=== PATIENT | female | born 1985 | race Caucasian/White ===

== ENCOUNTER 2019-03-09 16:14 | Observation (INO) ==
[2019-03-09] MEDS ORDERED: FLU Vac QV 19-20 (6Month+)/PF 0.5 ML SYRINGE IM ONE (16:33)
[2019-03-09 17:30] LABS: Basophils % 0.4 %; Eosinophils % 0.5 %; Hematocrit 34.6 % (35.3-44.9); Hemoglobin 11.3 g/dL (11.5-15.4); Immature Granulocytes % 0.4 % (0-4); Lymphocytes # 2.1 K/mcL (0.6-4.6); Lymphocytes % 29.1 %; Mean Corpuscular HGB Conc 32.7 g/dL (31.6-35.5); Mean Corpuscular Hemoglobin 27.4 pg (28.0-33.3); Mean Corpuscular Volume 83.8 fL (83.0-100.0); Mean Platelet Volume 11.2 fL (9.4-12.4); Monocytes # 0.5 K/mcL (0.0-1.3); Monocytes % 7.4 %; Neutrophils # 4.6 K/mcL (1.6-8.9); Platelet Count 227 K/mcL (140-400); Red Blood Count 4.13 M/mcL (3.82-4.97); Red Cell Distribution Width 14.5 % (11.5-14.5); Segmented Neutrophils % 62.2 %; White Blood Count 7.3 K/mcL (4.3-11.1)
[2019-03-09 17:36] LABS: Creatinine,Urine 76 mg/dL; Protein/Creatinine Ratio,Urine 0.29 mg/mg (0.00-0.20)
[2019-03-09 17:37] LABS: Amphetamine Screen,Urine Negative ng/mL (Cutoff=1000); Barbiturate Screen,Urine Negative ng/mL (Cutoff=200); Benzodiazepines Screen,Urine Negative ng/mL (Cutoff=200); Cannabinoid Screen,Urine Negative ng/mL (Cutoff = 50); Cocaine Screen,Urine Negative ng/mL (Cutoff= 300); Opiate Screen,Urine Negative ng/mL (Cutoff=300); Phencyclidine Screen,Urine Negative ng/mL (Cutoff=25)
[2019-03-09 17:44] LABS: Alanine Aminotransferase 10 Units/L (7-52); Aspartate Amino Transferase 15 Units/L (13-39); BUN/Creatinine Ratio 24 (6-26); Blood Urea Nitrogen 13 mg/dL (6-20); Lactate Dehydrogenase 161 Units/L (140-271); Uric Acid 5.4 mg/dL (2.3-7.6); eGFR For African Americans > 60 (> 60); eGFR For Non-African Americans > 60 (> 60)
[2019-03-09 18:12] LABS: Varicella Zoster IgG Antibody Positive
[2019-03-09 18:13] LABS: Rubella IgG Antibody POSITIVE (POSITIVE)
[2019-03-09 18:49] LABS: Hepatitis B Surface Antigen Nonreactive (Nonreactive)
[2019-03-09 19:18] LABS: Hepatitis C Virus Antibody Nonreactive (Nonreactive)
[2019-03-09 19:44] LABS: HIV-1&2 Antibody & p24 Ag Nonreactive (Nonreactive)
== END 2019-03-09 21:34 | disposition home or self-care (01) ==
LOC: 1NENULAB
PROVIDERS: ADMIT Registered Nurse; ATTEND Registered Nurse

== ENCOUNTER 2019-03-18 15:29 | Inpatient (IN) ==
[2019-03-18] MEDS ORDERED: Metoclopramide 10 MG/2 ML VIAL IVP PRN (16:17)
[2019-03-18] MEDS ORDERED: miSOPROStoL 25 MCG TABLET PO PRN (16:17)
[2019-03-18] MEDS ORDERED: Famotidine 20 MG/2 ML VIAL IVP PRN (16:17)
[2019-03-18] MEDS ORDERED: *HR* Nalbuphine 10 MG/ML AMPUL IVP PRN (16:17)
[2019-03-18] MEDS ORDERED: Naloxone 0.4 MG/ML INJ IVP PRN ×2 (16:17→20:00)
[2019-03-18] MEDS ORDERED: Lidocaine 1% 20 ML MDV INFILT PRN (16:17)
[2019-03-18] MEDS ORDERED: Ondansetron 4 MG/2 ML VIAL IVP PRN ×2 (16:17→20:00)
[2019-03-18] MEDS ORDERED: Oxytocin 20 units/ LR 1000 mL 20 UNIT/1,000 ML BAG IVC SCH (16:30)
[2019-03-18] MEDS ORDERED: FLU Vac QV 19-20 (6Month+)/PF 0.5 ML SYRINGE IM ONE (17:18)
[2019-03-18 17:22] LABS: Basophils % 0.4 %; Eosinophils # 0.1 K/mcL (0.0-0.6); Eosinophils % 1.1 %; Hematocrit 33.1 % (35.3-44.9); Immature Granulocytes % 0.4 % (0-4); Lymphocytes # 2.2 K/mcL (0.6-4.6); Lymphocytes % 28.9 %; Mean Corpuscular HGB Conc 33.2 g/dL (31.6-35.5); Mean Corpuscular Hemoglobin 27.7 pg (28.0-33.3); Mean Corpuscular Volume 83.4 fL (83.0-100.0); Mean Platelet Volume 10.3 fL (9.4-12.4); Monocytes # 0.5 K/mcL (0.0-1.3); Monocytes % 6.4 %; Neutrophils # 4.7 K/mcL (1.6-8.9); Platelet Count 228 K/mcL (140-400); Red Blood Count 3.97 M/mcL (3.82-4.97); Segmented Neutrophils % 62.8 %; White Blood Count 7.5 K/mcL (4.3-11.1)
[2019-03-18 17:31] LABS: Creatinine,Urine 157 mg/dL; Protein/Creatinine Ratio,Urine 0.18 mg/mg (0.00-0.20)
[2019-03-18 17:37] LABS: Amphetamine Screen,Urine Negative ng/mL (Cutoff=1000); Barbiturate Screen,Urine Negative ng/mL (Cutoff=200); Benzodiazepines Screen,Urine Negative ng/mL (Cutoff=200); Cannabinoid Screen,Urine Negative ng/mL (Cutoff = 50); Cocaine Screen,Urine Negative ng/mL (Cutoff= 300); Opiate Screen,Urine Negative ng/mL (Cutoff=300); Phencyclidine Screen,Urine Negative ng/mL (Cutoff=25)
[2019-03-18 17:41] LABS: Alanine Aminotransferase 11 Units/L (7-52); Aspartate Amino Transferase 15 Units/L (13-39); BUN/Creatinine Ratio 17 (6-26); Blood Urea Nitrogen 11 mg/dL (6-20); Lactate Dehydrogenase 144 Units/L (140-271); Uric Acid 5.8 mg/dL (2.3-7.6); eGFR For African Americans > 60 (> 60); eGFR For Non-African Americans > 60 (> 60)
[2019-03-18] MEDS ORDERED: Penicillin G Potassium 5,000,000 UNIT in 0.9 % Sodium Chloride Mini Bag 100 ML IVPB ONE (17:57)
[2019-03-18] MEDS: Ringers Solution, Lactated 1,000 ML IVC SCH (18:21)
[2019-03-18] MEDS ORDERED: Ropivacaine/PF 0.2% 20 ML VIAL EP ONE (20:00)
[2019-03-18] MEDS ORDERED: EPHEDrine 50 MG/ML VIAL IVP PRN (20:00)
[2019-03-18] MEDS ORDERED: *HR* FentaNYL (PF) 100 MCG/2 ML VIAL EP ONE (20:00)
[2019-03-18] MEDS: Penicillin G Potassium 2,500,000 UNIT in 0.9 % Sodium Chloride 100 ML IVPB SCH (22:50)
[2019-03-19] MEDS: Penicillin G Potassium 2,500,000 UNIT in 0.9 % Sodium Chloride 100 ML IVPB SCH ×4 (03:08→15:30)
[2019-03-19] MEDS: Ringers Solution, Lactated 1,000 ML IVC SCH ×2 (11:55→15:30)
[2019-03-19] MEDS: Epidural Premix (fent/bupiv) 110 ML EP SCH ×2 (13:53→21:25)
[2019-03-19] MEDS ORDERED: Ropivacaine/PF 0.2% 20 ML VIAL ONE (22:06)
[2019-03-19] MEDS ORDERED: *HR* FentaNYL (PF) 100 MCG/2 ML VIAL ONE (22:06)
[2019-03-20] MEDS ORDERED: Acetaminophen 325 MG TABLET PO ONE (05:53)
[2019-03-20] MEDS ORDERED: Acetaminophen 325 MG TABLET PO PRN (08:17)
[2019-03-20] MEDS ORDERED: Oxytocin 20 units/ LR 1000 mL 20 UNIT/1,000 ML BAG IVC SCH (08:17)
[2019-03-20] MEDS ORDERED: Rho Immune Globulin 1,500 UNIT SYRINGE IM PRN (08:17)
[2019-03-20] MEDS ORDERED: Measles/Mumps/Rubella Vacc 0.5 ML VIAL SQ PRN (08:17)
[2019-03-20] MEDS: Prenatal Vit/FA 1 EACH TABLET PO SCH (09:11)
[2019-03-20] MEDS: *HR* Enoxaparin 40 MG/0.4 ML SYRINGE SQ SCH (09:12)
[2019-03-21 02:59] LABS: Basophils % 0.2 %; Eosinophils # 0.1 K/mcL (0.0-0.6); Eosinophils % 1.5 %; Hematocrit 28.6 % (35.3-44.9); Immature Granulocytes % 0.5 % (0-4); Lymphocytes # 2.9 K/mcL (0.6-4.6); Lymphocytes % 34.5 %; Mean Corpuscular HGB Conc 32.2 g/dL (31.6-35.5); Mean Corpuscular Hemoglobin 27.8 pg (28.0-33.3); Mean Corpuscular Volume 86.4 fL (83.0-100.0); Mean Platelet Volume 11.4 fL (9.4-12.4); Monocytes # 0.7 K/mcL (0.0-1.3); Monocytes % 8.8 %; Neutrophils # 4.5 K/mcL (1.6-8.9); Platelet Count 188 K/mcL (140-400); Red Blood Count 3.31 M/mcL (3.82-4.97); Segmented Neutrophils % 54.5 %; White Blood Count 8.3 K/mcL (4.3-11.1)
[2019-03-21 03:00] LABS: Hemoglobin 9.2 g/dL (11.5-15.4)
[2019-03-21] MEDS: Prenatal Vit/FA 1 EACH TABLET PO SCH (09:06)
[2019-03-21] MEDS: *HR* Enoxaparin 40 MG/0.4 ML SYRINGE SQ SCH (09:06)
[2019-03-21] MEDS: Ibuprofen 600 MG TABLET PO PRN (22:29)
[2019-03-22 08:38] VITALS: BP 129/72
[2019-03-22] MEDS: Prenatal Vit/FA 1 EACH TABLET PO SCH (08:44)
[2019-03-22] MEDS: *HR* Enoxaparin 40 MG/0.4 ML SYRINGE SQ SCH (08:45)
[2019-03-22] MEDS: Ibuprofen 600 MG TABLET PO PRN (08:45)
[2019-03-22] MEDS ORDERED: FLU Vac QV 19-20 (6Month+)/PF 0.5 ML SYRINGE IM ONE (14:04)
== END 2019-03-22 16:00 | disposition home or self-care (01) | DRG 560 ==
LOC: 1NENULAB → OBSVTOIN 15:29 → 1NENUOBS 03-20 08:14
PROVIDERS: ADMIT Registered Nurse; ATTEND Registered Nurse